=== PATIENT | male | born 1935 | race Caucasian/White ===

== ENCOUNTER 2016-08-12 10:02 | Day surgery (SDC) | payer MEDICARE, OTHER ==
--- NOTE | ~2016-08-12 | EGD ---
EGD REPORT [facility] [address] [address] NAME: LITO COURTNEY : 35 STATUS : REG [facility]#: [id number] AGE: 80 ADM/REG DATE : 08/12/16 MR#: [id number] REPORT SERV DATE: 08/12/16 DICTATED BY: LITO BENITEZ DATE: 08/12/16 REPORT STATUS : Draft TRANSCRIBED BY: [employer] DATE: 08/12/16 [facility] Patient Name: Lito Courtney Date of : 1935 Attending MD: LITO BENITEZ MD Procedure Date No Time: 08/12/2016 Procedure: Upper GI endoscopy Indications: Dysphagia, Follow-up of esophageal ulcer Referring MD: PREM JHAVERI Medicines: See the Anesthesia note for documentation of the administered medications Complications: No immediate complications. Procedure: Pre-Anesthesia Assessment: - ASA Grade Assessment: II - A patient with mild systemic disease. After obtaining informed consent, the endoscope was passed under direct vision. Throughout the procedure, the patient's blood pressure, pulse, and oxygen saturations were monitored continuously. The GIF [id number] was introduced through the mouth, and advanced to the second part of duodenum. The upper GI endoscopy was accomplished without difficulty. The patient tolerated the procedure well. Findings: Diffuse mildly erythematous mucosa with erosions was found in the duodenal bulb. Mild inflammation was found in the gastric antrum. Biopsies were taken with a cold forceps for histology. The cardia and gastric fundus were normal on retroflexion. A small hiatus hernia was present. A benign-appearing, intrinsic mild stenosis was found and was in distal esophagus. Distal ulcerative esophagitis Impression: - Erythematous duodenopathy. - Gastritis. Biopsied. - Hiatus hernia. - Benign-appearing esophageal stricture. - Distal ulcerative esophagitis Recommendation: - Patient has a contact number available for emergencies. The signs and symptoms of potential delayed complications were discussed with the patient. Return to normal activities tomorrow. Written discharge EGD REPORT [address] [address] NAME: LITO COURTNEY : 35 STATUS : REG [facility]#: [id number] AGE: 80 ADM/REG DATE : 08/12/16 MR#: [id number] REPORT SERV DATE: 08/12/16 DICTATED BY: LITO BENITEZ DATE: 08/12/16 REPORT STATUS : Draft TRANSCRIBED BY: [employer] DATE: 08/12/16 instructions were provided to the patient. - Regular diet. - Continue present medications. - FOR YOUR BIOPSY RESULTS: Please go to [email or web address] and register to receive your results via the portal. Your biopsy results will be posted there in about 7 to 10 days. IF you do not see result in 10 days, call office. - Take protonix twice per day for 2 weeks, then one every am Call office to schedule EGD with dilation in 3-4 weeks Procedure Code(s): --- Professional --- 26088, Esophagogastroduodenoscopy, flexible, transoral; with biopsy, single or multiple Diagnosis Code(s): --- Professional --- K31.89, Other diseases of stomach and duodenum K29.70, Gastritis, unspecified, without bleeding K44.9, Diaphragmatic hernia without obstruction or gangrene K22.2, Esophageal obstruction R13.10, Dysphagia, unspecified K22.10, Ulcer of esophagus without bleeding CPT copyright 2013 [employer]. All rights reserved. The codes documented in this report are preliminary and upon telephone order supervisor review may be revised to meet current compliance requirements. Lito Benitez MD LITO BENITEZ MD 08/12/2016 12:12 PM This report has been signed electronically. Number of Addenda: 0 Note Initiated On: 08/12/2016 11:52 AM Scope Withdrawal Time 0 hours 0 minutes 0 seconds [address] [place] [address]
[~2016-08-12 10:02] MED LIST: CITRUCELSF PO; CO Q-10 PO; MAGNESIUM PO; OMEGA PO; PROTONIX PO; SUCR PO; VITAMIN D3 PO; [UNRECOGNIZED DRUG - OTHER] PO
[2016-10-05] MEDS ORDERED: [UNRECOGNIZED DRUG - OTHER] PO (13:04)
[2016-10-05] MEDS ORDERED: SUCR PO (13:05)
== END 2016-08-12 23:59 | disposition home or self-care (01) ==
LOC: DMU 10:02
PROVIDERS: Internal Medicine Gastroenterology
PROC: 0DB68ZX Excision of Stomach, Via Natural or Artificial Opening Endoscopic, Diagnostic (ICD-10-PCS; principal; 2016-08-12 12:00)
DX: K44.9 Diaphragmatic hernia without obstruction or gangrene (principal); K22.10 Ulcer of esophagus without bleeding; K22.2 Esophageal obstruction; K31.89 Other diseases of stomach and duodenum; Z90.49 Acquired absence of other specified parts of digestive tract; Z98.41 Cataract extraction status, right eye; Z98.42 Cataract extraction status, left eye; Z98.890 Other specified postprocedural states
CPT/HCPCS: 88305